=== PATIENT | female | born 1965 | race Caucasian/White ===

== ENCOUNTER → 2019-05-22 15:13 | Outpatient (BNVA) | payer MEDICAID, SELFPAY | PROVIDERS: Family Provider Family Medicine; PCP Family Medicine; Referring Provider Family Medicine; Visit Provider Internal Medicine Cardiovascular Disease | DX: I50.33 Acute on chronic diastolic (congestive) heart failure (principal); R60.9 Edema, unspecified; Z79.01 Long term (current) use of anticoagulants; R07.9 Chest pain, unspecified; R07.89 Other chest pain; R06.02 Shortness of breath; Z86.79 Personal history of other diseases of the circulatory system; M79.606 Pain in leg, unspecified; I35.0 Nonrheumatic aortic (valve) stenosis; E78.5 Hyperlipidemia, unspecified; I25.118 Atherosclerotic heart disease of native coronary artery with other forms of angina pectoris | CPT/HCPCS: 80053; 83880; 85025 ==

== ENCOUNTER → 2020-12-25 09:18 | Outpatient (BNVA) | payer MEDICAID, SELFPAY | PROVIDERS: Family Provider Family Medicine; PCP Family Medicine; Referring Provider Family Medicine; Visit Provider Internal Medicine | DX: E04.1 Nontoxic single thyroid nodule (principal); E04.2 Nontoxic multinodular goiter; E03.9 Hypothyroidism, unspecified; F17.200 Nicotine dependence, unspecified, uncomplicated | CPT/HCPCS: 99204 ==

== ENCOUNTER 2021-01-27 10:38 | Outpatient (CLI) | payer MEDICAID, SELFPAY ==
--- NOTE | 2021-01-27 11:00 | US_ITS ---
WS: [id number] ULTRASOUND THYROID TECHNIQUE: Ultrasound of the thyroid. CLINICAL INFORMATION: assess nodules and LN COMPARISON: None. FINDINGS: Thyroid: Markedly enlarged right thyroid with heterogeneous echotexture compatible with goiter. Small er but enlarged left thyroid lobe. Right thyroid lobe: 10.0 cm x 3.0 cm x 3.7 cm Left thyroid lobe: 6.3 cm x 2.2 cm x 2.0 cm. Isthmus: 7 mm. Cervical lymphadenopathy: None. US/US thyroid [id number] IMPRESSION: Thyroid goiter right greater than left. No dominant nodules.
== END 2021-01-27 10:39 | disposition home or self-care (01) ==
LOC: US 10:39
PROVIDERS: PCP Family Medicine; Visit Provider Internal Medicine
DX: E04.2 Nontoxic multinodular goiter (principal)
CPT/HCPCS: 76536

== ENCOUNTER 2021-02-09 07:51 | Outpatient (CLI) | payer MEDICAID, SELFPAY ==
--- NOTE | 2021-02-09 08:45 | US_ITS ---
WS: [id number] ULTRASOUND THYROID TECHNIQUE: Ultrasound of the thyroid. CLINICAL INFORMATION: [facility] COMPARISON: January 27, 2021 FINDINGS: Thyroid: Again seen is enlarged heterogeneous thyroid goiter bilaterally right greater than left. No discrete nodules to target for biopsy. Cervical lymphadenopathy: None. US/US thyroid [id number] IMPRESSION: Enlarged heterogeneous thyroid goiter bilaterally right greater than left. No d iscrete nodules to target for biopsy at this time. Notified Xiao Neil MD at 02/09/2021 9:07 AM.
== END 2021-02-09 07:52 | disposition home or self-care (01) ==
PROVIDERS: PCP Family Medicine; Visit Provider Internal Medicine
DX: E04.2 Nontoxic multinodular goiter (principal)
CPT/HCPCS: 10005; 76536